=== PATIENT | female | born 1975 | race Caucasian/White ===

== ENCOUNTER 2017-11-13 10:19 | Emergency (ER) | payer OTHER ==
[~2017-11-13] VITALS: Ht 160 cm; Wt 69.4 kg
[2017-11-13 10:26] VITALS: BP 146/89
[2017-11-13 11:07] VITALS: BP 136/97
== END 2017-11-13 11:07 | disposition home or self-care (01) ==
LOC: MED 10:19
DX: J32.1 Chronic frontal sinusitis (principal); Z90.89 Acquired absence of other organs
CPT/HCPCS: 99283